=== PATIENT | female | born 1970 | race Caucasian/White ===

== ENCOUNTER → 2018-04-15 16:25 | Outpatient (CLI) | payer OTHER, SELFPAY ==
--- NOTE | 2018-04-15 | DI.MRI.S_ITS ---
PROCEDURE: MR KNEE RT WO CON INDICATIONS: Right lateral knee pain TECHNIQUE: Noncontrast sagittal PD fast spin echo and T2 fast spin echo with fat saturation, sagittal 3-D FLASH with fat saturation; coronal T1 spin echo and PD fast spin echo with fat saturation, and axial PD fast spin echo with fat saturation through the knee. COMPARISON: None. FINDINGS: Image quality: Excellent. Menisci: There is mild irregular tearing along the free edge of the medial meniscus at the junction of the posterior horn and body. The lateral meniscus appears intact. The meniscal root ligaments appear intact. Cruciate ligaments: The anterior cruciate ligament is thickened with intrasubstance T2 hyperintensity and periligamentous edema. The findings may represent sequelae of a mild sprain or chronic myxoid degeneration. The majority of the fibers appear intact. The posterior cruciate ligament appears intact. Medial structures: There is periligamentous edema along the medial collateral ligament which demonstrates mildly attenuated intrasubstance signal. The findings are compatible with a mild grade 2 sprain. The semimembranosus tendon insertions are attenuated distally with associated peritendinous edema consistent with a mild strain. There is also a mild strain at the origin and proximally involving the medial head of the gastrocnemius. The meniscocapsular junction appears preserved. Visualized portions of the pes anserinus tendons appear intact without associated bursal fluid collections. Lateral structures: The lateral collateral ligament, long and short heads of the biceps femoris tendon appear mildly attenuated distally suggestive of mild partial tearing. The popliteus tendon also demonstrates a mild strain proximally. Anterior structures: The quadriceps tendon demonstrates intrasubstance T2 hyperintensity with attenuated signal consistent with a mild to moderate strain or partial tearing involving the rectus femoris and vastus lateralis components. The lateral retinaculum is attenuated with associated edema compatible with mild partial tearing. The patella tendon appears intact. Patellar alignment is normal. No femoral trochlear dysplasia or ventral trochlear prominence. No edema in the infrapatellar fat pad. Bones and cartilage: No bone marrow contusions or fractures. There is mild superficial chondral fraying in the medial, lateral, and patellofemoral compartments. Joint space: There is a moderate to large joint effusion with periarticular soft tissue edema. There is a small amount of fluid in the expected region of a Loza's cyst. Normal appearing synovial plicae are incidentally noted. IMPRESSION: 1. Mild to moderate strain of the quadriceps tendon involving the rectus femoris and vastus lateralis components as well as mild partial tearing of the lateral retinaculum. 2. Mild grade 2 sprain of the medial collateral ligament. 3. Moderate to large joint effusion with mild periarticular soft tissue edema. 4. Mild partial tearing of the lateral collateral ligament complex distally as well as a mild strain of the popliteal tendon. 5. Mild partial tearing along the free edge at the junction of the posterior horn and body of the medial meniscus. 6. Mild strains at the attachments of the medial head of the gastrocnemius and semimembranosus. Dictated by: Ramón Duong M.D. on 04/18/2018 at 9:47 Approved by: Ramón Duong M.D. on 04/18/2018 at 10:08
== END ==
PROVIDERS: PCP Family Medicine; Visit Provider Specialist
DX: S83.241A Other tear of medial meniscus, current injury, right knee, initial encounter (principal); S86.811A Strain of other muscle(s) and tendon(s) at lower leg level, right leg, initial encounter; S83.421A Sprain of lateral collateral ligament of right knee, initial encounter; S83.411A Sprain of medial collateral ligament of right knee, initial encounter; M25.461 Effusion, right knee; M25.561 Pain in right knee
CPT/HCPCS: 73721